=== PATIENT | male | born 1970 | race Two or more races ===

== ENCOUNTER 2016-06-23 20:59 | Emergency (ER) | payer SELFPAY ==
[~2016-06-23 20:59] MED LIST: ALLO100T PO; IBUP-1481 PO
== END 2016-06-23 21:16 | disposition left against medical advice (07) ==
LOC: ER 21:02
DX: Z53.21 Procedure and treatment not carried out due to patient leaving prior to being seen by health care provider (principal)

== ENCOUNTER 2016-07-24 17:24 | Emergency (ER) | payer SELFPAY ==
[~2016-07-24] VITALS: Ht 188 cm; Wt 93.0 kg
[2016-07-24] MEDS ORDERED: predniSONE 20 MG TABLET ONE (18:26)
[2016-07-24] MEDS ORDERED: HYDROCODONE/APAP 5/325MG 1 EACH TABLET ONE (18:26)
[2016-07-24] MEDS ORDERED: HYDROCODONE/APAP 5/325MG 1 EACH TABLET PO ONE (18:30)
[2016-07-24] MEDS ORDERED: predniSONE 20 MG TABLET PO ONE (18:30)
[2016-07-24 18:53] VITALS: BP 147/108
== END 2016-07-24 18:54 | disposition home or self-care (01) ==
LOC: ER 17:26
DX: M10.9 Gout, unspecified (principal); M79.641 Pain in right hand; I10 Essential (primary) hypertension; F17.200 Nicotine dependence, unspecified, uncomplicated
CPT/HCPCS: 73120-TC; A4606; Z7610

== ENCOUNTER 2016-08-28 16:47 | Emergency (ER) | payer SELFPAY ==
[~2016-08-28] VITALS: Ht 188 cm; Wt 95.3 kg
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
--- NOTE | 2016-08-28 17:10 | NUR ---
AT BEDSIDE FOR EVAL
--- NOTE | 2016-08-28 17:28 | NUR ---
XRAY AT BEDSIDE
[2016-08-28] MEDS ORDERED: GELATIN SPONGE,ABSORBABLE 1 SPONGE SPONGE TP ONE (18:25)
--- NOTE | 2016-08-28 18:29 | NUR ---
WOUND CARE DONE. Patient discharged to home in stable condition. Written and verbal after care instructions given. Patient verbalizes understanding of instruction.
--- NOTE | 2016-08-28 18:51 | NUR ---
Patient discharged to home in stable condition. Written and verbal after care instructions given. Patient verbalizes understanding of instruction.
[2016-08-28 18:59] VITALS: BP 130/85
== END 2016-08-28 19:00 | disposition home or self-care (01) ==
LOC: ER 16:49
DX: S61.213A Laceration without foreign body of left middle finger without damage to nail, initial encounter (principal); I10 Essential (primary) hypertension; M10.9 Gout, unspecified; S61.211A Laceration without foreign body of left index finger without damage to nail, initial encounter; F10.20 Alcohol dependence, uncomplicated; F17.210 Nicotine dependence, cigarettes, uncomplicated
CPT/HCPCS: 29130; 73140; 99284; 99406; A4606; A6403; Z7610

== ENCOUNTER 2017-02-26 22:31 | Inpatient (IN) | payer MEDICAID ==
[~2017-02-26] VITALS: Ht 188 cm; Wt 95.3 kg
--- NOTE | 2017-02-26 22:50 | NUR ---
PT BIBSELF. PT STATES "I DONT FEEL GOOD X 1 DAY" PT AOX3 RR EVEN AND UNLABORED. NO SOB NOTED. NAD NOTED. NO NVD AT THIS TIME. PT NOT DIAPHORETIC. PT GOWNED AND PLACED ON MONITOR WAITING FOR MD WARD.
--- NOTE | 2017-02-26 23:00 | NUR ---
DR. SANABRIA AT BEDSIDE
[2017-02-26] MEDS ORDERED: MORPHINE SULFATE INJ 4 MG/ML DISP.SYRIN ONE (23:25)
[2017-02-26] MEDS ORDERED: ONDANSETRON HCL/PF 4 MG/2 ML VIAL ONE (23:25)
[2017-02-26] MEDS ORDERED: MORPHINE SULFATE INJ 2 MG/ML DISP.SYRIN IV ONE (23:30)
[2017-02-26] MEDS ORDERED: ONDANSETRON HCL/PF - ER 4 MG/2 ML VIAL IV ONE (23:30)
--- NOTE | 2017-02-26 23:31 | NUR ---
RADIOLOGY AT BEDSIDE FOR CXR
[2017-02-26 23:42] LABS: BASOPHILS # (AUTO) 0.1 /CMM (0.0-0.2); BASOPHILS % (AUTO) 0.4 % (0.0-2.0); EOSINOPHILS # (AUTO) 0.3 /CMM (0.0-0.7); EOSINOPHILS % (AUTO) 1.8 % (0.0-6.0); HEMATOCRIT 44 % (39-51); HEMOGLOBIN 14.8 g/dL (13.5-17.5); LYMPHOCYTES # (AUTO) 2.4 /CMM (0.8-4.8); LYMPHOCYTES % (AUTO) 12.8 % (20.0-44.0); MEAN CORPUSCULAR HEMOGLOBIN 31 PG (26.0-33.0); MEAN CORPUSCULAR HGB CONC 34 g/dl (31.0-36.0); MEAN CORPUSCULAR VOLUME 93 fL (80-96); MONOCYTES # (AUTO) 0.6 /CMM (0.1-1.30); MONOCYTES % (AUTO) 3.4 % (2.0-12.0); NEUTROPHILS # (AUTO) 15.2 /CMM (1.8-8.9); NEUTROPHILS % (AUTO) 81.6 % (43.0-81.0); PLATELET COUNT (AUTO) 227 /CMM (150-450); RDW COEFFICIENT OF VARIATION 14.4 (11.5-15.0); RED BLOOD CELL COUNT(AUTO) 4.72 MIL/uL (4.5-6.0); WHITE BLOOD COUNT (AUTO) 18.6 K/uL (4.3-11.0)
[2017-02-26 23:53] LABS: CALCIUM, SERUM 9.1 mg/dL (8.5-10.1); CARBON DIOXIDE 21 mmol/L (21-32); CHLORIDE 102 mmol/L (98-107); CREATININE 1.1 mg/dL (0.6-1.3); GLUCOSE 120 mg/dL (74-106); POTASSIUM 3.9 mmol/L (3.5-5.1); SODIUM SERUM 137 mmol/L (136-145); UREA NITROGEN, BLOOD 11 mg/dL (7-18)
[2017-02-26 23:55] LABS: INR 0.96 (0.87-1.13)
[2017-02-27 00:06] LABS: ALANINE AMINOTRANSFERASE 46 U/L (12-78); ALBUMIN 3.6 g/dL (3.4-5.0); ALKALINE PHOSPHATASE 94 U/L (46-116); ASPARTATE AMINOTRANSFERASE 24 U/L (15-37); BILIRUBIN,DIRECT 0.1 mg/dL (0.0-0.2); BILIRUBIN,TOTAL 0.8 mg/dL (0.2-1.0); TOTAL PROTEIN, SERUM 8.3 g/dL (6.4-8.2)
[2017-02-27 00:07] LABS: TROPONIN I < 0.017 ng/mL (0.00-0.056)
--- NOTE | 2017-02-27 00:19 | NUR ---
URINE COLLECTED. CALLED LAB FOR VASCULAR TECH.
[2017-02-27 00:28] LABS: APPEARANCE,URINE CLEAR (CLEAR); BILIRUBIN,URINE NEGATIVE (NEGATIVE); BLOOD, URINE 2+ Ery/uL (NEGATIVE); COLOR,URINE YELLOW (YELLOW); KETONES,URINE NEGATIVE (NEGATIVE); LEUKOCYTE ESTERASE ,URINE NEGATIVE (NEGATIVE); NITRITE, URINE NEGATIVE (NEGATIVE); PH,URINE 5.5 (5.0-8.0); PROTEIN,URINE 3+ mg/dl (NEGATIVE); UGLUCOSE NEGATIVE (NEGATIVE); UROBILINOGEN,URINE 0.2 EU/dL (0.2)
[2017-02-27] MEDS ORDERED: VANCOMYCIN 1 GM VIAL ONE (00:28)
[2017-02-27] MEDS ORDERED: IV NS 0.9% 1,000 ML BAG IV ONE (00:30)
[2017-02-27] MEDS ORDERED: LEVOFLOXACIN 750 MG /D5W 150ML PIGGYBACK IV ONE (00:30)
[2017-02-27] MEDS ORDERED: VANCOMYCIN 1 GM in IV D5W 250 ML IV ONE (00:30)
[2017-02-27 00:32] LABS: BACTERIA,URINE None seen /HPF (None Seen); SQUAMOUS EPITHELIAL CELL,UR Few /HPF (None Seen)
--- NOTE | 2017-02-27 00:48 | NUR ---
PT ASSIGNED TO MA BED 324-2
--- NOTE | 2017-02-27 00:52 | NUR ---
BED 208
--- NOTE | 2017-02-27 01:05 | NUR ---
REPORT GIVEN TO JOHN ZUNIGA FOR MS 208
[2017-02-27] MEDS ORDERED: HYDROCODONE/APAP 5/325MG 1 EACH TABLET PO PRN (01:30)
[2017-02-27] MEDS: CEFTRIAXONE 1 G in IV D5W 50 ML IV SCH (01:30)
[2017-02-27] MEDS ORDERED: ACETAMINOPHEN 325 MG TABLET PO PRN (01:30)
[2017-02-27] MEDS ORDERED: ONDANSETRON HCL/PF 4 MG/2 ML VIAL IVP PRN (01:30)
[2017-02-27] MEDS ORDERED: MAGNESIUM HYDROXIDE 30 ML UDC PO PRN (01:30)
[2017-02-27] MEDS ORDERED: Z GUARD REMEDY 2 OZ OINT TP PRN (01:30)
[2017-02-27] MEDS ORDERED: MAG HYDROX/AL HYDROX/SIMETH 30 ML UDC PO PRN (01:30)
[2017-02-27] MEDS ORDERED: LEVOFLOXACIN 750 MG /D5W 150ML 150 ML IV ONE (01:33)
--- NOTE | 2017-02-27 01:40 | NUR ---
PT TRANSFERRED TO MS BED 208 VIA WC. IVPB LEVAQUIN TRANSFUSING ON ADMISSION.
[2017-02-27] MEDS ORDERED: HYDROCODONE/APAP 5/325MG 1 EACH TABLET ONE (01:57)
[2017-02-27 02:00] VITALS: BP 119/76
--- NOTE | 2017-02-27 02:00 | NUR ---
MS/RN OPENING NOTES PT RECEIVED FROM ER VIA WHEELCHAIR. A/OX4. BREATHING EVEN AND UNLABORED. DENIES SOB BUT NOTES PAIN TO RIGHT ELBOW AND KNEE TO BE 6/10. PT AMBULATED TO BED WITH CANE HOWEVER IS VERY UNSTEADY AND REQUIRES ASSISTANCE. IV TO LAC PATENT AND INTACT. CIGARETTES AND CIVIL RIGHTS INVESTIGATOR PLACED IN NURSES STATION. ORIENTED PT TO ROOM AND CALL LIGHT. BED IN LOW/LOCKED POSITION, SIDE RAILS UPX2. ENCOURAGED PT TO CALL FOR ASSISTANCE UPON AMBULATION. PT VERBALIZED UNDERSTANDING. WILL CONTINUE TO MONITOR.
[2017-02-27] MEDS: IV NS 0.9% 1,000 ML IV PRN ×2 (02:02→16:24)
[2017-02-27] MEDS ORDERED: CEFTRIAXONE 1 G VIAL ONE (03:51)
--- NOTE | 2017-02-27 07:00 | NUR ---
MS/RN CLOSING NOTES PT ASLEEP, EASILY AROUSABLE TO NAME. ON ROOM AIR, DENIES SOB OR PAIN AT THIS TIME. BREATHING EVEN AND UNLABORED. IV TO LAC PATENT AND INTACT RUNNING IVF ORDERED. MADE PT COMFORTABLE DURING SHIFT. ALL NEEDS MET AND ATTENDED. ENCOURAGED AND REMINDED PT TO USE CALL LIGHT FOR ASSISTANCE. BED ALARM ON FOR SAFETY. CIGARETTES AND LIGHTERS AT NURSING STATION. BED IN LOW/LOCKED POSITION, CALL LIGHT IN REACH. SIDE RAILS UPX2. ENDORSED TO AM SHIFT FELIPE.
--- NOTE | 2017-02-27 07:30 | NUR ---
MS/RN Patient received Patient received from cage shift manager. No needs at this time, will continue to monitor and ensure safety.
[2017-02-27 08:00] VITALS: BP 129/84
[2017-02-27] MEDS ORDERED: FEE PK DOSING 1 MIN EA MC ONE (08:32)
[2017-02-27] MEDS: ALLOPURINOL 100 MG TABLET PO SCH ×2 (08:57→16:25)
[2017-02-27] MEDS: PANTOPRAZOLE 40 MG TABLET.DR PO SCH (08:57)
--- NOTE | 2017-02-27 09:00 | NUR ---
MS/RN Medications Morning medications administered as ordered, no problems swallowing.
[2017-02-27] MEDS: HYDROCODONE/APAP 10/325MG 1 EA TABLET PO PRN ×3 (09:05→21:13)
[2017-02-27] MEDS: VANCOMYCIN 1 GM in IV D5W 250 ML IV SCH ×2 (09:11→16:25)
--- NOTE | 2017-02-27 09:50 | NUR ---
MS/RN Vanco Vancomycin hung as ordered, no signs of reaction. Vanco trough due tomorrow at 8(02/28/17)
--- NOTE | 2017-02-27 10:57 | NUR ---
WOUND CARE CONSULT PATIENT SEEN AND SKIN INTEGRITY ASSESSMENT DONE. RECOMMEND ORTHO CONSULT/EVALUATION FOR THE RIGHT ELBOW SWELLING. PATIENT WITH JAMES AT 19 AND PATIENT IS INDEPENDENT WITH BED MOBILITY.
--- NOTE | 2017-02-27 12:00 | NUR ---
MS/RN S/B Dr Szymanski Seen by Dr Szymanski - awaiting ortho for further orders / plan of care.
--- NOTE | 2017-02-27 12:13 | NUR ---
MS/movie writer consult Ortho exchange called and made aware of new consult.
--- NOTE | 2017-02-27 13:51 | NUR ---
MS/RN Rounds Patient comfortable at this time, states that pain is controlled. Awaiting ortho eval.
[2017-02-27 16:00] VITALS: BP 124/83
[2017-02-27] MEDS ORDERED: IBUPROFEN 600 MG TABLET PO PRN (16:30)
[2017-02-27] MEDS ORDERED: COLCHICINE 0.6 MG TABLET PO PRN (16:30)
--- NOTE | 2017-02-27 18:21 | NUR ---
MS/RN End note Seen by ortho - no surgical intervention required at this time, continue with current IVAB schedule. Last pain medication administered at 1640 (norco 10/325mg). Will endorse to horseshoer.
--- NOTE | 2017-02-27 19:30 | NUR ---
MS RN OPENING NOTES: PATIENT IN BED, AOX4, ON ROOM AIR, BREATHING EVEN AND UNLABORED. APPEARS CALM AND IN NO DISTRESS, BUT STATES THAT HE HAS 5/10 PAIN OVER HIS R ELBOW AND R KNEE, AND THAT THE EARLIER DOSE OF NORCO DID NOT RELIEVE THE PAIN SIGNIFICANTLY. PIV OVER LAC G18 INTACT AND PATENT TO FLUSH. PATIENT IS OFF IV FLUIDS AT THIS TIME, SAYING HE WANTS TO HAVE IT RECONNECTED LATER BEFORE HE GOES TO SLEEP. PROVIDED FOR COMFORT AND SAFETY. BED IN LOWEST AND LOCKED POSITION, SIDERAILS UP X2, BROTHER AT BEDSIDE. WILL CONT TO MONITOR.
[2017-02-27 20:00] VITALS: BP 123/72
--- NOTE | 2017-02-27 20:01 | NUR ---
RN NOTES: CALLED DR FÁTIMA HART PATIENT'S COMPLAINT THAT HIS R ELBOW AND R KNEE PAIN DOES NOT GET SIGNIFICANTLY RELIEVED BY NORCO 10-325 MG Q 4 PRN, AND THAT HE IS ASKING FOR A DIFFERENT PAIN MEDICATION. NO NEW ORDERS GIVEN BY MD, OTHER THAN TO CONTINUE CURRENT PAIN MEDS.
--- NOTE | 2017-02-27 21:17 | NUR ---
RN NOTES: PT COMPLAINED OF 8/10 PAIN OVER HIS R ELBOW AND R KNEE. ADMINISTERED NORCO 10-325 MG PO. PROVIDED FOR COMFORT. WILL CONT TO MONITOR.
[2017-02-27] MEDS: ZOLPIDEM TARTRATE 5 MG TABLET PO PRN (22:14)
[2017-02-28] MEDS: VANCOMYCIN 1 GM in IV D5W 250 ML IV SCH ×3 (00:15→17:55)
[2017-02-28] MEDS: CEFTRIAXONE 1 G in IV D5W 50 ML IV SCH (01:50)
[2017-02-28 02:19] VITALS: BP 116/83
--- NOTE | 2017-02-28 02:22 | NUR ---
RN NOTES: NOTED THAT R ELBOW WOUND HAS SMALL AMOUNT OF SEROSANGUINEOUS DRAINAGE. CLEANSED WITH NS, PATTED DRY, APPLIED DRY DRESSING AND SECURED WITH PAPER TAPE. CONT TO MONITOR FOR CHANGES IN APPEARANCE OF WOUND AND OF THE DRAINAGE.
[2017-02-28 06:22] LABS: BASOPHILS # (AUTO) 0.1 /CMM (0.0-0.2); BASOPHILS % (AUTO) 0.3 % (0.0-2.0); EOSINOPHILS # (AUTO) 0.2 /CMM (0.0-0.7); EOSINOPHILS % (AUTO) 1.3 % (0.0-6.0); HEMATOCRIT 41 % (39-51); HEMOGLOBIN 13.6 g/dL (13.5-17.5); LYMPHOCYTES # (AUTO) 2.1 /CMM (0.8-4.8); LYMPHOCYTES % (AUTO) 10.8 % (20.0-44.0); MEAN CORPUSCULAR HEMOGLOBIN 32 PG (26.0-33.0); MEAN CORPUSCULAR HGB CONC 33 g/dl (31.0-36.0); MEAN CORPUSCULAR VOLUME 95 fL (80-96); MONOCYTES # (AUTO) 0.8 /CMM (0.1-1.30); MONOCYTES % (AUTO) 4.3 % (2.0-12.0); NEUTROPHILS # (AUTO) 16.3 /CMM (1.8-8.9); NEUTROPHILS % (AUTO) 83.3 % (43.0-81.0); PLATELET COUNT (AUTO) 206 /CMM (150-450); RDW COEFFICIENT OF VARIATION 14.2 (11.5-15.0); RED BLOOD CELL COUNT(AUTO) 4.31 MIL/uL (4.5-6.0); WHITE BLOOD COUNT (AUTO) 19.5 K/uL (4.3-11.0)
[2017-02-28 06:47] LABS: CALCIUM, SERUM 8.6 mg/dL (8.5-10.1); CREATININE 1.3 mg/dL (0.6-1.3); PHOSPHORUS 3.6 mg/dL (2.5-4.9); POTASSIUM 4.2 mmol/L (3.5-5.1); THYROID STIMULATING HORMONE 0.652 uIU/mL (0.358-3.74); URIC ACID 8.7 mg/dL (2.6-7.2)
--- NOTE | 2017-02-28 06:50 | NUR ---
RN NOTES: RECEIVED CALL FROM NILDA FROM LAB: CRITICAL VALUE OF MAGNESIUM AT 1.0. PAGED DR FÁTIMA PALENCIA, AWAITING CALL BACK.
--- NOTE | 2017-02-28 07:34 | NUR ---
MS RN CLOSING NOTES: PATIENT IN BED, AOX4, ON ROOM AIR, BREATHING EVEN AND UNLABORED. APPEARS CALM AND IN NO DISTRESS. PIV OVER LAC G 18 INTACT AND INFUSING CONTINUOUSLY WITH NS RUNNING AT 75 ML/HR. NO ACUTE CHANGE IN CONDITION NOTED THROUGH SHIFT. PROVIDED FOR COMFORT AND SAFETY. BED IN LOWEST AND LOCKED POSITION, SIDERAILS UPX2. STILL AWAITING CALL BACK FROM [facility] REGARDING MAGNESIUM 1.0. ENDORSED TO AM RN FOR FELIPE.
--- NOTE | 2017-02-28 07:35 | NUR ---
RN Initial Notes: Patient resting in bed. Alert oriented x4. Non-labored breathing on room air noted. Patient denies pain at the moment. Bed in lowest locked position. Call light within reach. Will continue to monitor
--- NOTE | 2017-02-28 07:47 | NUR ---
RN NOTES: TRIED TO PAGE [facility] MD FRENCH BINDING FOLDER AGAIN FOR M.0, STILL AWAITING FOR CALL BACK.
[2017-02-28] MEDS: PANTOPRAZOLE 40 MG TABLET.DR PO SCH (07:58)
[2017-02-28 08:00] VITALS: BP 133/87
--- NOTE | 2017-02-28 08:06 | NUR ---
RN Notes: Spoke to Dr. Szymanski. He ordered 2 g magnesium IV x1.
[2017-02-28] MEDS: Magnesium 1GM/D5W 100ML PREMIX 100 ML IV SCH ×2 (08:45→10:27)
[2017-02-28] MEDS: ALLOPURINOL 100 MG TABLET PO SCH ×2 (08:59→17:33)
--- NOTE | 2017-02-28 09:19 | NUR ---
RN Notes: Vital signs reassessed at rest. HR 106/min and temperature 98.2F
--- NOTE | 2017-02-28 09:20 | NUR ---
RN Notes: Dr. Szymanski ordered to have serum magnesium checked again after the administration of his previous order
--- NOTE | 2017-02-28 11:59 | NUR ---
RN Notes: Spoke to Ivory at 0945 regarding Vancomycin delivery. Spoke to Ivory at 1030 as well and confirmed that Vancomycin was being delivered. Vancomycin delivered at 1130. However, Patient refused to have it infused and desired to go on a smoke break. Vancomycin administered 8192
[2017-02-28] MEDS: IV NS 0.9% 1,000 ML IV PRN (15:56)
[2017-02-28 16:00] VITALS: BP 123/68
[2017-02-28] MEDS: LACTOBACILLUS RHAMNOSUS GG 1 EACH CAP.SPRINK PO SCH (17:32)
--- NOTE | 2017-02-28 17:45 | NUR ---
RN Notes: Spoke to Pharmacy staff member to confirm administration of Vancomycin, scheduled at 1700
--- NOTE | 2017-02-28 18:45 | NUR ---
RN Closing Notes: Patient resting in bed. Alert oriented x4. Non-labored breathing on room air noted. Patient denies pain at the moment. Bed in lowest locked position. Call light within reach. Patient afebrile. During shift, patient kept clean and dry. Needs met promptly. Wound dressing done. Will endorse to next shift
--- NOTE | 2017-02-28 19:30 | NUR ---
MS RN CLOSING NOTES: PATIENT SITTING ON BED, AOX4, ON ROOM AIR, BREATHING EVEN AND UNLABORED, APPEARS CALM AND IN NO DISTRESS, EATING DINNER WITH . PATIENT HAS JUST COME BACK FROM A SMOKE BREAK. PIV OVER LAC G18 INTACT AND PATENT TO FLUSH, PATIENT REQUESTED FOR IV FLUID TO BE STOPPED FOR A WHILE AT THIS TIME, SAYING HE WANTS TO WALK IN THE HALLWAY FOR NOW. EDUCATED PATIENT AGAIN RE RISKS OF SMOKING, PATIENT VERBALIZED UNDERSTANDING OF RISKS OF SMOKING AND BENEFITS OF QUITTING. PROVIDED FOR COMFORT AND SAFETY. R ELBOW WITH CLEAN AND INTACT DRESSING. WILL CONT TO MONITOR.
[2017-02-28] MEDS: HYDROCODONE/APAP 10/325MG 1 EA TABLET PO PRN (19:46)
--- NOTE | 2017-02-28 19:50 | NUR ---
RN NOTES: PT COMPLAINS OF 810 PAIN OVER R ELBOW AND R KNEE. ADMINISTERED NORCO 10-325 MG PO. WILL CONT TO MONITOR.
[2017-02-28 20:00] VITALS: BP 110/73
--- NOTE | 2017-02-28 23:08 | NUR ---
RN NOTES: PATIENT COMPLAINED OF PAIN/ TENDERNESS OVER PIV OVER LAC. IV STILL HAS GOOD BLOOD RETURN, BUT SLIGHTLY REDDENED. D'LOPEZ LINE, AND REINSERTED NEW IV LINE AT LFA G20.
[2017-02-28] MEDS: ZOLPIDEM TARTRATE 5 MG TABLET PO PRN (23:23)
[2017-03-01] MEDS: VANCOMYCIN 1 GM in IV D5W 250 ML IV SCH ×3 (01:26→17:56)
[2017-03-01] MEDS: CEFTRIAXONE 1 G in IV D5W 50 ML IV SCH (02:26)
[2017-03-01 05:00] VITALS: BP 115/88
[2017-03-01 06:35] LABS: CALCIUM, SERUM 8.9 mg/dL (8.5-10.1); CREATININE 1.5 mg/dL (0.6-1.3)
--- NOTE | 2017-03-01 06:52 | NUR ---
MS RN CLOSING NOTES: PATIENT IN BED, AOX4, ON ROOM AIR, BREATHING EVEN AND UNLABORED. APPEARS CALM AND IN NO DISTRESS. PIV OVER LFA G20 INTACT AND INFUSING WELL WITH NS RUNNING AT 75 ML/HR. WOUND DRESSING OVER R ELBOW CHANGED. PROVIDED FOR COMFORT AND SAFETY. BED IN LOWEST AND LOCKED POSITION, SIDERAILS UP X2. NO ACUTE CHANGE IN CONDITION NOTED THROUGH SHIFT. WILL ENDORSE TO AM RN FOR FELIPE.
--- NOTE | 2017-03-01 07:20 | NUR ---
RN Initial Notes: Received patient resting in bed. Nonlabored breathing noted on room air. Patient alert oriented x4. Patient denies pain at the moment. IV site on left forearm is patent and intact.Bed in lowest locked position. Call light within reach. Will continue to monitor.
[2017-03-01 07:28] LABS: BASOPHILS % (AUTO) 0.2 % (0.0-2.0); EOSINOPHILS # (AUTO) 0.5 /CMM (0.0-0.7); EOSINOPHILS % (AUTO) 3.7 % (0.0-6.0); HEMATOCRIT 39 % (39-51); HEMOGLOBIN 12.9 g/dL (13.5-17.5); LYMPHOCYTES # (AUTO) 2.1 /CMM (0.8-4.8); LYMPHOCYTES % (AUTO) 15.8 % (20.0-44.0); MEAN CORPUSCULAR HEMOGLOBIN 31 PG (26.0-33.0); MEAN CORPUSCULAR HGB CONC 33 g/dl (31.0-36.0); MEAN CORPUSCULAR VOLUME 94 fL (80-96); MONOCYTES # (AUTO) 0.7 /CMM (0.1-1.30); MONOCYTES % (AUTO) 5.6 % (2.0-12.0); NEUTROPHILS # (AUTO) 10.1 /CMM (1.8-8.9); NEUTROPHILS % (AUTO) 74.7 % (43.0-81.0); PLATELET COUNT (AUTO) 219 /CMM (150-450); RDW COEFFICIENT OF VARIATION 14.6 (11.5-15.0); RED BLOOD CELL COUNT(AUTO) 4.12 MIL/uL (4.5-6.0); WHITE BLOOD COUNT (AUTO) 13.5 K/uL (4.3-11.0)
[2017-03-01 07:42] LABS: ALBUMIN 2.9 g/dL (3.4-5.0); BILIRUBIN,DIRECT 0.2 mg/dL (0.0-0.2); BILIRUBIN,TOTAL 0.7 mg/dL (0.2-1.0); TOTAL PROTEIN, SERUM 7.7 g/dL (6.4-8.2)
[2017-03-01 08:00] VITALS: BP 105/74
[2017-03-01] MEDS: LACTOBACILLUS RHAMNOSUS GG 1 EACH CAP.SPRINK PO SCH ×2 (08:44→16:40)
[2017-03-01] MEDS: PANTOPRAZOLE 40 MG TABLET.DR PO SCH (08:44)
[2017-03-01] MEDS: HYDROCODONE/APAP 10/325MG 1 EA TABLET PO PRN ×2 (08:57→20:01)
[2017-03-01] MEDS: ALLOPURINOL 100 MG TABLET PO SCH ×2 (09:48→16:40)
[2017-03-01 16:00] VITALS: BP 118/75
--- NOTE | 2017-03-01 19:15 | NUR ---
RN Closing Notes: Patient resting in bed. Nonlabored breathing noted on room air. Patient alert oriented x4. IV site on left forearm is patent and intact.Bed in lowest locked position. Call light within reach. During shift, patient kept clean and dry. Wound dressing changed. Patient endorsed to next shift
--- NOTE | 2017-03-01 19:30 | NUR ---
MS RN OPENING NOTES: PATIENT IN BED, AOX4, ON ROOM AIR, BREATHING EVEN AND UNLABORED. PIV OVER LFA G20 INTACT AND INFUSING WELL WITH NS RUNNING AT 75 ML/HR. R ELBOW STILL WITH NOTICEABLE REDNESS AND SWELLING, WITH CLEAN AND INTACT DRESSING . PATIENT STATES THAT HE HAS PAIN OVER THIS SITE, SCALED AT 7-8 /10. PROVIDED FOR COMFORT AND SAFETY. BED IN LOWEST AND LOCKED POSITION, SIDERAILS UPX2. AT BEDSIDE. WILL CONT TO MONITOR.
[2017-03-01 20:00] VITALS: BP 132/78
--- NOTE | 2017-03-01 20:01 | NUR ---
RN NOTES: PATIENT COMPLAINED OF 8/10 PAIN OVER R ELBOW. ADMINISTERED NORCO 10-325 MG PO. WILL CONT TO MONITOR.
[2017-03-01] MEDS: ZOLPIDEM TARTRATE 5 MG TABLET PO PRN (22:06)
[2017-03-02] MEDS: VANCOMYCIN 1 GM in IV D5W 250 ML IV SCH ×2 (01:00→16:24)
[2017-03-02] MEDS: CEFTRIAXONE 1 G in IV D5W 50 ML IV SCH (01:28)
[2017-03-02] MEDS: IV NS 0.9% 1,000 ML IV PRN ×2 (01:28→22:23)
--- NOTE | 2017-03-02 01:30 | NUR ---
RN NOTES: VANCO TROUGH: 22. HELD 0130 AM DOSE OF VANCOMYCIN 1 GM.
[2017-03-02 06:21] LABS: BASOPHILS % (AUTO) 0.1 % (0.0-2.0); EOSINOPHILS # (AUTO) 0.5 /CMM (0.0-0.7); EOSINOPHILS % (AUTO) 4.3 % (0.0-6.0); HEMATOCRIT 37 % (39-51); HEMOGLOBIN 12.5 g/dL (13.5-17.5); LYMPHOCYTES # (AUTO) 1.8 /CMM (0.8-4.8); LYMPHOCYTES % (AUTO) 16.1 % (20.0-44.0); MEAN CORPUSCULAR HEMOGLOBIN 32 PG (26.0-33.0); MEAN CORPUSCULAR HGB CONC 34 g/dl (31.0-36.0); MEAN CORPUSCULAR VOLUME 93 fL (80-96); MONOCYTES # (AUTO) 0.9 /CMM (0.1-1.30); MONOCYTES % (AUTO) 7.8 % (2.0-12.0); NEUTROPHILS % (AUTO) 71.7 % (43.0-81.0); PLATELET COUNT (AUTO) 245 /CMM (150-450); RED BLOOD CELL COUNT(AUTO) 3.93 MIL/uL (4.5-6.0); WHITE BLOOD COUNT (AUTO) 11.1 K/uL (4.3-11.0)
[2017-03-02 06:32] LABS: CALCIUM, SERUM 9.2 mg/dL (8.5-10.1); CREATININE 1.4 mg/dL (0.6-1.3); POTASSIUM 4.2 mmol/L (3.5-5.1)
--- NOTE | 2017-03-02 06:34 | NUR ---
RN NOTES: PATIENT'S PIV OVER LFA STARTING TO SWELL. D'LOPEZ LINE AND REINSERTED NEW IV LINE ON LAC G22. PATIENT COMPLAINED OF MILD PAIN OVER R ELBOW. ADMINISTERED IBUPROFEN 600 MG PO. WILL CONT TO MONITOR.
--- NOTE | 2017-03-02 06:53 | NUR ---
MS RN CLOSING NOTES: PATIENT IN BED, AOX4, ON ROOM AIR, BREATHING EVEN AND UNLABORED. APPEARS CALM AND IN NO DISTRESS. PIV OVER LAC G22 INTACT AND PATENT TO FLUSH. DUE MEDS GIVEN. WOUND DRESSING OVER R ELBOW CHANGED. NO ACUTE CHANGE IN CONDITION NOTED THROUGH SHIFT. WILL ENDORSE TO AM RN FOR FELIPE .
--- NOTE | 2017-03-02 07:30 | NUR ---
ms rn initial notes' Received patient in bed, asleep, head of bed elevated, no SOB or distress noted, on room air and tolerated well. Alert and oriented x 4, verbally responsive and able to make needs known. IV intact and patent with IVF infusing well. Kept patient clean and comfortable in bed, call light with in patient reach, will continue to monitor accordingly.
[2017-03-02] MEDS: PANTOPRAZOLE 40 MG TABLET.DR PO SCH (07:50)
[2017-03-02 08:00] VITALS: BP 124/74
[2017-03-02] MEDS: LACTOBACILLUS RHAMNOSUS GG 1 EACH CAP.SPRINK PO SCH ×2 (09:01→16:24)
[2017-03-02] MEDS: ALLOPURINOL 100 MG TABLET PO SCH ×2 (09:01→16:24)
--- NOTE | 2017-03-02 15:24 | NUR ---
ms rn notes Dr. Szymanski ordered for midline insertion and RN workers' compensation claims supervisor made aware for IV ATB use. All orders carried out and noted. Will continue to monitor accordingly.
[2017-03-02 16:00] VITALS: BP 131/98
[2017-03-02] MEDS: HYDROCODONE/APAP 10/325MG 1 EA TABLET PO PRN ×2 (16:27→23:31)
--- NOTE | 2017-03-02 19:30 | NUR ---
ms rn closing notes All needs provided, attended, and anticipated. Endorsed to next shift RN to continue care.
[2017-03-02 20:06] VITALS: BP 125/94
--- NOTE | 2017-03-02 20:10 | NUR ---
MS RN NOTED: PATIENT RESTING IN BED, NO ACUTE DISTRESS NOTED. BREATHING EVEN AND UNLABORED, NO SOB NOTED. MIDLINE TO KYLER IN PLACE. IV TO LAC REMOVED. DRESSING TO RIGHT ELBOW CHANGED. SITE CLEANSED WITH NS, PAT DRY, COVERED WITH GAUZE, WRAPPED WITH KERLIX AND SECURED WITH TAPE. BED LOCKED AND IN LOWEST POSITION, CALL LIGHT IN REACH, WILL CONTINUE TO MONITOR.
[2017-03-02] MEDS: ZOLPIDEM TARTRATE 5 MG TABLET PO PRN (22:23)
--- NOTE | 2017-03-02 22:30 | NUR ---
MS RN NOTE: PATIENT REQUEST FOR SLEEPING MEDICATIONS, AMBIEN 5MG 1 TAB ORAL GIVEN PER MD ORDER. WILL CONTINUE TO MONITOR.
--- NOTE | 2017-03-02 23:45 | NUR ---
MS RN NOTE: PATIENT COMPLAINS OF PAIN TO RIGHT ELBOW 01/08, NORCO 10/325MG 1 TAB ORAL GIVEN PER MD ORDER. WILL CONTINUE TO MONITOR.
[2017-03-03] MEDS: CEFTRIAXONE 1 G in IV D5W 50 ML IV SCH (01:13)
[2017-03-03] MEDS: VANCOMYCIN 1 GM in IV D5W 250 ML IV SCH ×2 (05:48→15:03)
--- NOTE | 2017-03-03 06:18 | NUR ---
MS RN NOTED: PATIENT RESTING IN BED, NO ACUTE DISTRESS NOTED. BREATHING EVEN AND UNLABORED, NO SOB NOTED. MIDLINE TO KYLER IN PLACE, INFUSING NS AT 75ML/HR. DRESSING TO RIGHT ELBOW IN PLACE. BED LOCKED AND IN LOWEST POSITION, CALL LIGHT IN REACH, WILL ENDORSE TO DAY NURSE TO CONTINUE WITH PLAN OF CARE.
[2017-03-03 06:41] LABS: CALCIUM, SERUM 9.3 mg/dL (8.5-10.1); CREATININE 1.4 mg/dL (0.6-1.3); POTASSIUM 4.2 mmol/L (3.5-5.1)
--- NOTE | 2017-03-03 07:16 | NUR ---
ms rn initial notes Received patient in bed, asleep, head of bed elevated, no SOB or distress noted, on room air and tolerated well. Midline in place and patent. No facial grimace noted. Kept patient clean and comfortable in bed, call light with in patient reach, will continue to monitor accordingly. Alert and oriented x 4, verbally responsive and able to make needs known.
[2017-03-03] MEDS: PANTOPRAZOLE 40 MG TABLET.DR PO SCH (07:38)
[2017-03-03 08:00] VITALS: BP_SYST 114; BP_SYST 116; BP_DIAS 72; BP_DIAS 88
[2017-03-03] MEDS: LACTOBACILLUS RHAMNOSUS GG 1 EACH CAP.SPRINK PO SCH (08:54)
[2017-03-03] MEDS: ALLOPURINOL 100 MG TABLET PO SCH (08:54)
[2017-03-03] MEDS ORDERED: CEFT1VIA15 IV (10:19)
[2017-03-03] MEDS ORDERED: RXVAN XX (10:19)
[2017-03-03] MEDS ORDERED: Colchicine PO (10:19)
[2017-03-03] MEDS ORDERED: VANC1PLA9 IV (10:19)
[2017-03-03 16:00] VITALS: BP_SYST 124; BP_SYST 127; BP_DIAS 64; BP_DIAS 85
--- NOTE | 2017-03-03 16:30 | NUR ---
ms interventional radiology rn notes Discharge instructions given to patient and able to understand instructions. Health teaching and education rendered. IV in placed midline. Wound dressing done prior discharge. Flu vaccine offered and will receive elsewhere. Pneumonia vaccine not given due to patient is <65 years old. No SOB or distress noted. Alert and oriented x 4, verbally responsive and able to make needs known. Pictures taken and filed in the chart. Vital signs checked and recorded. MD and charge nurse made aware.
== END 2017-03-03 16:30 | disposition home health service (06) | DRG 344 ==
LOC: ER 22:34 → MEDSG2 02-27 01:06
PROC: 05H633Z Insertion of Infusion Device into Left Subclavian Vein, Percutaneous Approach (ICD-10-PCS; principal; 2017-03-02)
PROC: B547ZZA Ultrasonography of Left Subclavian Vein, Guidance (ICD-10-PCS; principal; 2017-03-02)
DX: M00.9 Pyogenic arthritis, unspecified (principal); E83.42 Hypomagnesemia; I10 Essential (primary) hypertension; M10.9 Gout, unspecified; E78.5 Hyperlipidemia, unspecified; F17.200 Nicotine dependence, unspecified, uncomplicated; M71.121 Other infective bursitis, right elbow; L03.113 Cellulitis of right upper limb
CPT/HCPCS: 36415; 36569; 71010-TC; 73080-TC; 80048-TC; 80061-TC; 80076-TC; 80202-TC; 81000-TC; 83605-TC; 83735-TC; 84100-TC; 84443-TC; 84484-TC; 84550-TC; 85025-TC; 85652-TC; 85730-TC; 87040-TC; 87081-TC; 87086-TC; A4606; A6402; J0696; J1956; J2270; J2405; J3370; J3475; J7030; J7060; Z7610

== ENCOUNTER 2017-10-16 12:07 | Emergency (ER) | payer MEDICAID, OTHER ==
[~2017-10-16] VITALS: Ht 188 cm; Wt 113.4 kg
[~2017-10-16 12:07] MED LIST changes: +CEFT1VIA15 IV; +Colchicine PO; -IBUP-1481 PO; +IBUP-1953 PO; +RXVAN XX; +VANC1PLA9 IV
--- NOTE | 2017-10-16 12:10 | NUR ---
AAOX3, c/o R hand pain and swelling x 6 days, takes meds for gout. RR is even and unlabored with NAD noted. Skin is warm and dry. Awaiting MD for eval.
[2017-10-16] MEDS ORDERED: CLINDAMYCIN 900 MG in IV D5W 100 ML IV ONE (13:00)
[2017-10-16 13:13] LABS: BASOPHILS % (AUTO) 0.3 % (0.0-2.0); EOSINOPHILS % (AUTO) 3.6 % (0.0-6.0); HEMATOCRIT 40 % (39-51); HEMOGLOBIN 13.8 g/dL (13.5-17.5); LYMPHOCYTES # (AUTO) 2.1 /CMM (0.8-4.8); LYMPHOCYTES % (AUTO) 22.3 % (20.0-44.0); MEAN CORPUSCULAR HGB CONC 35 g/dl (31.0-36.0); MEAN CORPUSCULAR VOLUME 95 fL (80-96); MONOCYTES # (AUTO) 0.5 /CMM (0.1-1.30); MONOCYTES % (AUTO) 5.1 % (2.0-12.0); NEUTROPHILS # (AUTO) 6.4 /CMM (1.8-8.9); NEUTROPHILS % (AUTO) 68.7 % (43.0-81.0); PLATELET COUNT (AUTO) 286 /CMM (150-450); RDW COEFFICIENT OF VARIATION 12.7 (11.5-15.0); RED BLOOD CELL COUNT(AUTO) 4.18 MIL/uL (4.5-6.0); WHITE BLOOD COUNT (AUTO) 9.3 K/uL (4.3-11.0)
--- NOTE | 2017-10-16 13:20 | NUR ---
CALLED NURSING SUP. FOR MS BED
[2017-10-16] MEDS ORDERED: VANCOMYCIN 1 GM in IV D5W 250 ML IV ONE (13:30)
[2017-10-16] MEDS ORDERED: PIPERACILLIN /TAZOBACTAM 3.375 G in IV D5W 50 ML IV ONE (13:30)
[2017-10-16] MEDS ORDERED: COLC0.6C3 PO (13:32)
[2017-10-16 13:33] LABS: CREATININE 1.3 mg/dL (0.6-1.3); POTASSIUM 4.3 mmol/L (3.5-5.1)
--- NOTE | 2017-10-16 13:38 | NUR ---
CALLED , LEFT MESSAGE ON VOICEMAIL
[2017-10-16 13:39] LABS: ALBUMIN 3.2 g/dL (3.4-5.0); BILIRUBIN,DIRECT 0.1 mg/dL (0.0-0.2); BILIRUBIN,TOTAL 0.4 mg/dL (0.2-1.0); TOTAL PROTEIN, SERUM 7.8 g/dL (6.4-8.2)
--- NOTE | 2017-10-16 13:56 | NUR ---
Dez dean in ED - 10/16/17 at 1836 by FELICIANO MS [id number] FOR HAND ABSCESS, CELLULITIS, JOSE PAYNE
--- NOTE | 2017-10-16 14:16 | NUR ---
CALLED [facility], SPOKE WITH FOREIGN, PRESENTED PT, FAXED FACESHEET TO HIM AT [phone]
--- NOTE | 2017-10-16 15:00 | NUR ---
CALLED 'S OFFICE, HE IS IN SURGERY RIGHT NOW
--- NOTE | 2017-10-16 15:17 | NUR ---
Patient is playing with his phone at BS. VSS.
[2017-10-16] MEDS ORDERED: MORPHINE SULFATE INJ 4 MG/ML DISP.SYRIN ONE ×2 (15:21→17:12)
[2017-10-16] MEDS ORDERED: ONDANSETRON HCL/PF 4 MG/2 ML VIAL ONE (15:21)
--- NOTE | 2017-10-16 15:24 | NUR ---
Patient insists to go out smoking, MICHELLE Zarate made aware.
[2017-10-16] MEDS ORDERED: ONDANSETRON HCL/PF - ER 4 MG/2 ML VIAL IV ONE (15:30)
[2017-10-16] MEDS ORDERED: IV NS 0.9% 500 ML BAG IV ONE (15:30)
[2017-10-16] MEDS ORDERED: MORPHINE SULFATE INJ 4 MG/ML DISP.SYRIN IV ONE (15:30)
--- NOTE | 2017-10-16 15:30 | NUR ---
RECEIV[place] FROM [place]EIGN [place] [facility] [place] [facility] ER BY DR.E GARCIA, NUMBER FOR NURSE TO GIVE REPORT IS [phone].
--- NOTE | 2017-10-16 15:36 | NUR ---
REQUESTED [facility] FOR TRANSPORT TO [facility], ETA 1 HOUR, TRIP # [id number]
--- NOTE | 2017-10-16 16:12 | NUR ---
Report given to JOHN Brown for continuity of care [facility].
--- NOTE | 2017-10-16 16:37 | NUR ---
Dez dean in [facility] - 10/16/17 at 1933 by FELICIANO KORI RIOS 1914
--- NOTE | 2017-10-16 17:13 | NUR ---
VERBAL ORDER SHANNA MARTINEZ MORPHINE 4 MG IV X1
--- NOTE | 2017-10-16 17:35 | NUR ---
Dez dean in ED - 10/16/17 at 1808 by DEBI REPORT GIVEN TO JEFF EMT.
--- NOTE | 2017-10-16 17:58 | NUR ---
CALLED [facility] FOR TRANSPORTATION 5-10 MIN
[2017-10-16] MEDS ORDERED: MORPHINE SULFATE INJ 2 MG/ML DISP.SYRIN IV ONE (18:00)
--- NOTE | 2017-10-16 18:37 | NUR ---
[facility] ETA 191
--- NOTE | 2017-10-16 18:38 | NUR ---
Report given to JOHN Burrows for FELIPE.
--- NOTE | 2017-10-16 19:15 | NUR ---
AWAITING TRANSFER PICKUP
--- NOTE | 2017-10-16 19:32 | NUR ---
[facility] ETA 1 HOUR
--- NOTE | 2017-10-16 19:49 | NUR ---
[facility] ETA 18 MIN
[2017-10-16 20:18] VITALS: BP 133/80
--- NOTE | 2017-10-16 20:26 | NUR ---
JEFF ARRIVED. REPORT GIVEN TO OUTSIDE MACHINIST APPRENTICE. PT TRANSFERED OUT TO [facility] ER. VSS
== END 2017-10-16 20:28 ==
LOC: ER 12:10
DX: L02.511 Cutaneous abscess of right hand (principal); M65.9 Synovitis and tenosynovitis, unspecified; L08.9 Local infection of the skin and subcutaneous tissue, unspecified; I10 Essential (primary) hypertension; F10.10 Alcohol abuse, uncomplicated; F17.200 Nicotine dependence, unspecified, uncomplicated; M10.9 Gout, unspecified; Z72.0 Tobacco use
CPT/HCPCS: 36415; 71045-TC; 73130-TC; 80048-TC; 80076-TC; 83605-TC; 85025-TC; 87040-TC; 87081-TC; A4606; J2270; J2405; J2543; J3370; J3490; J7040; J7060; Z7610

== ENCOUNTER 2018-02-22 00:38 | Emergency (ER) | payer OTHER ==
[~2018-02-22] VITALS: Ht 188 cm; Wt 97.5 kg
[~2018-02-22 00:38] MED LIST changes: -CEFT1VIA15 IV; +COLC0.6C3 PO; -Colchicine PO; -RXVAN XX; -VANC1PLA9 IV
[2018-02-22] MEDS ORDERED: ACETAMINOPHEN ES 500 MG TABLET PO ONE (01:00)
[2018-02-22] MEDS ORDERED: HYDROCODONE/APAP 10/325MG 1 EA TABLET PO ONE (01:00)
[2018-02-22] MEDS ORDERED: NITROGLYCERIN PACKET 1 GM PACKET TD ONE (01:00)
[2018-02-22] MEDS ORDERED: ONDANSETRON HCL/PF - ER 4 MG/2 ML VIAL IV ONE (01:00)
[2018-02-22] MEDS ORDERED: INDOMETHACIN 25 MG CAPSULE PO ONE (01:00)
[2018-02-22] MEDS ORDERED: ASPIRIN 81 MG TAB.CHEW PO ONE (01:00)
[2018-02-22] MEDS ORDERED: INDOMETHACIN 25 MG CAPSULE ONE (01:08)
[2018-02-22] MEDS ORDERED: ONDANSETRON HCL/PF 4 MG/2 ML VIAL ONE (01:08)
[2018-02-22] MEDS ORDERED: HYDROCODONE/APAP 10/325MG 1 EA TABLET ONE (01:08)
[2018-02-22] MEDS ORDERED: ASPIRIN 81 MG TAB.CHEW ONE (01:09)
[2018-02-22] MEDS ORDERED: NITROGLYCERIN PACKET 1 GM PACKET ONE (01:09)
[2018-02-22 01:19] LABS: CALCIUM, SERUM 9.5 mg/dL (8.5-10.1); CARBON DIOXIDE 25 mmol/L (21-32); CHLORIDE 101 mmol/L (98-107); CREATININE 1.4 mg/dL (0.6-1.3); GLUCOSE 140 mg/dL (74-106); POTASSIUM 3.8 mmol/L (3.5-5.1); SODIUM SERUM 139 mmol/L (136-145); UREA NITROGEN, BLOOD 29 mg/dL (7-18)
[2018-02-22 01:22] LABS: TROPONIN I < 0.017 ng/mL (0.00-0.056)
[2018-02-22 01:23] LABS: BASOPHILS # (AUTO) 0.1 /CMM (0.0-0.2); BASOPHILS % (AUTO) 0.3 % (0.0-2.0); EOSINOPHILS % (AUTO) 3.3 % (0.0-6.0); HEMATOCRIT 43 % (39-51); HEMOGLOBIN 13.8 g/dL (13.5-17.5); LYMPHOCYTES # (AUTO) 3.8 /CMM (0.8-4.8); LYMPHOCYTES % (AUTO) 23.5 % (20.0-44.0); MEAN CORPUSCULAR HGB CONC 32 g/dl (31.0-36.0); MEAN CORPUSCULAR VOLUME 97 fL (80-96); MONOCYTES # (AUTO) 0.4 /CMM (0.1-1.30); MONOCYTES % (AUTO) 2.3 % (2.0-12.0); NEUTROPHILS # (AUTO) 11.5 /CMM (1.8-8.9); NEUTROPHILS % (AUTO) 70.6 % (43.0-81.0); PLATELET COUNT (AUTO) 367 /CMM (150-450); RDW COEFFICIENT OF VARIATION 13.7 (11.5-15.0); RED BLOOD CELL COUNT(AUTO) 4.44 MIL/uL (4.5-6.0); WHITE BLOOD COUNT (AUTO) 16.3 K/uL (4.3-11.0)
[2018-02-22 01:28] LABS: ALANINE AMINOTRANSFERASE 105 U/L (12-78); ALBUMIN 3.4 g/dL (3.4-5.0); ALKALINE PHOSPHATASE 79 U/L (46-116); ASPARTATE AMINOTRANSFERASE 22 U/L (15-37); B-TYPE NATRIURETIC PEPTIDE 76 PG/ML (0-125); BILIRUBIN,DIRECT 0.1 mg/dL (0.0-0.2); BILIRUBIN,TOTAL 0.3 mg/dL (0.2-1.0); TOTAL PROTEIN, SERUM 7.9 g/dL (6.4-8.2)
[2018-02-22] MEDS ORDERED: MORPHINE SULFATE INJ 2 MG/ML DISP.SYRIN IV ONE (02:00)
[2018-02-22] MEDS ORDERED: MORPHINE SULFATE INJ 4 MG/ML DISP.SYRIN ONE (02:29)
--- NOTE | 2018-02-22 02:45 | NUR ---
O2 SAT 88 ON NC 2L. MD AWARE. PER VERBAL MD ORDER PT ON 6L NC.
[2018-02-22] MEDS ORDERED: COLCHICINE 0.6 MG TABLET PO ONE (03:00)
[2018-02-22] MEDS ORDERED: COLCHICINE 0.6 MG TABLET ONE (03:09)
--- NOTE | 2018-02-22 05:00 | NUR ---
Patient discharged to home in stable condition. Written and verbal after care instructions given. Patient verbalizes understanding of instruction. IV removed. Catheter intact and site benign. Pressure and 4x4 applied to site. No bleeding noted. Pt ambulatory with a steady gait. Instructed pt not to drive
[2018-02-22 07:04] VITALS: BP 134/99
== END 2018-02-22 07:05 | disposition home or self-care (01) ==
LOC: ER 00:40
DX: R07.89 Other chest pain (principal); M10.9 Gout, unspecified; F17.210 Nicotine dependence, cigarettes, uncomplicated; I10 Essential (primary) hypertension; Z79.899 Other long term (current) drug therapy
CPT/HCPCS: 36415; 71045; 80048; 80076; 83880; 84484 ×2; 84550; 85025; 93005; 96374; 96375; 99285; 99406; A4606; J2270; J2405; Z7610

== ENCOUNTER 2018-09-19 08:40 | Emergency (ER) | payer OTHER ==
[~2018-09-19] VITALS: Ht 188 cm; Wt 99.3 kg
[2018-09-19 08:49] VITALS: BP 147/101
[2018-09-19] MEDS ORDERED: KETOROLAC TROMETHAMINE INJ 60 MG/2 ML VIAL IM ONE ×2 (09:00→09:07)
[2018-09-19] MEDS ORDERED: HYDROCODONE/APAP 10/325MG 1 EA TABLET PO ONE (09:00)
[2018-09-19] MEDS ORDERED: HYDROCODONE/APAP 10/325MG 1 EA TABLET ONE (09:08)
[2018-09-19 09:12] LABS: BASOPHILS # (AUTO) 0.1 /CMM (0.0-0.2); EOSINOPHILS % (AUTO) 5.2 % (0.0-6.0); HEMATOCRIT 43 % (39-51); HEMOGLOBIN 14.5 g/dL (13.5-17.5); LYMPHOCYTES # (AUTO) 1.8 /CMM (0.8-4.8); LYMPHOCYTES % (AUTO) 24.8 % (20.0-44.0); MEAN CORPUSCULAR HGB CONC 34 g/dl (31.0-36.0); MEAN CORPUSCULAR VOLUME 97 fL (80-96); MONOCYTES # (AUTO) 0.4 /CMM (0.1-1.30); MONOCYTES % (AUTO) 5.4 % (2.0-12.0); NEUTROPHILS # (AUTO) 4.5 /CMM (1.8-8.9); NEUTROPHILS % (AUTO) 63.6 % (43.0-81.0); PLATELET COUNT (AUTO) 223 /CMM (150-450); RED BLOOD CELL COUNT(AUTO) 4.41 MIL/uL (4.5-6.0); WHITE BLOOD COUNT (AUTO) 7.1 K/uL (4.3-11.0)
[2018-09-19 09:20] LABS: CALCIUM, SERUM 9.2 mg/dL (8.5-10.1); CREATININE 1.3 mg/dL (0.6-1.3)
[2018-09-19 09:26] LABS: BILIRUBIN,DIRECT 0.1 mg/dL (0.0-0.2); BILIRUBIN,TOTAL 0.1 mg/dL (0.2-1.0)
[2018-09-19 09:27] LABS: ALBUMIN 3.3 g/dL (3.4-5.0); TOTAL PROTEIN, SERUM 7.8 g/dL (6.4-8.2)
[2018-09-19] MEDS ORDERED: COLCHICINE 0.6 MG TABLET ONE (09:53)
[2018-09-19] MEDS ORDERED: TRAMADOL HCL 50 MG TABLET ONE (09:57)
[2018-09-19] MEDS ORDERED: TRAMADOL HCL 50 MG TABLET PO ONE (10:00)
[2018-09-19] MEDS ORDERED: COLCHICINE 0.6 MG TABLET PO ONE (10:00)
== END 2018-09-19 10:03 | disposition home or self-care (01) ==
LOC: ER 08:48
DX: M10.061 Idiopathic gout, right knee (principal); M25.461 Effusion, right knee; I10 Essential (primary) hypertension; F10.10 Alcohol abuse, uncomplicated; F17.200 Nicotine dependence, unspecified, uncomplicated; Y90.9 Presence of alcohol in blood, level not specified
CPT/HCPCS: 36415; 73564; 80048; 80076; 84550; 85025; 96372; 99284; J1885

== ENCOUNTER 2020-03-28 01:19 | Emergency (ER) | payer MEDICARE, OTHER ==
[~2020-03-28] VITALS: Ht 188 cm; Wt 100.2 kg
[2020-03-28] MEDS ORDERED: NITROGLYCERIN PACKET 1 GM PACKET ONE (01:37)
[2020-03-28] MEDS ORDERED: NITROGLYCERIN 0.4 MG/TAB BOTTLE ONE (01:37)
[2020-03-28] MEDS ORDERED: ASPIRIN 81 MG TAB.CHEW ONE (01:37)
[2020-03-28] MEDS: NITROGLYCERIN PACKET 1 GM PACKET TD ONE ×2 (01:40→02:00)
--- NOTE | 2020-03-28 01:40 | NUR ---
SL NITRO GIVEN. UNRELIEVED CP.
--- NOTE | 2020-03-28 01:45 | NUR ---
SECOND NITRO ADMINISTERED
--- NOTE | 2020-03-28 01:46 | NUR ---
MONICAID SWABBED, SENT TO LAB.
--- NOTE | 2020-03-28 01:50 | NUR ---
THIRD NITRO ADMINISTERED
[2020-03-28 01:53] LABS: BASOPHILS # (AUTO) 0.2 /CMM (0.0-0.2); BASOPHILS % (AUTO) 1.5 % (0.0-2.0); EOSINOPHILS % (AUTO) 3.9 % (0.0-6.0); HEMATOCRIT 41 % (39-51); HEMOGLOBIN 14.3 g/dL (13.5-17.5); LYMPHOCYTES # (AUTO) 4.1 /CMM (0.8-4.8); LYMPHOCYTES % (AUTO) 36.3 % (20.0-44.0); MEAN CORPUSCULAR HGB CONC 35 g/dl (31.0-36.0); MEAN CORPUSCULAR VOLUME 99 fL (80-96); MONOCYTES # (AUTO) 0.8 /CMM (0.1-1.30); MONOCYTES % (AUTO) 7.1 % (2.0-12.0); NEUTROPHILS # (AUTO) 5.8 /CMM (1.8-8.9); NEUTROPHILS % (AUTO) 51.2 % (43.0-81.0); PLATELET COUNT (AUTO) 341 /CMM (150-450); RED BLOOD CELL COUNT(AUTO) 4.16 MIL/uL (4.5-6.0); WHITE BLOOD COUNT (AUTO) 11.4 K/uL (4.3-11.0)
[2020-03-28] MEDS ORDERED: ASPIRIN 81 MG TAB.CHEW PO ONE (02:00)
[2020-03-28] MEDS ORDERED: NITROGLYCERIN 0.4 MG/TAB BOTTLE SL ONE (02:00)
--- NOTE | 2020-03-28 02:06 | NUR ---
PT STILL C/O MD KAREN AWARE. WILL ADMINISTER PAIN MED.
[2020-03-28 02:08] LABS: CALCIUM, SERUM 8.6 mg/dL (8.5-10.1); CARBON DIOXIDE 20 mmol/L (21-32); CHLORIDE 104 mmol/L (98-107); GLUCOSE 166 mg/dL (74-106); SODIUM SERUM 137 mmol/L (136-145); UREA NITROGEN, BLOOD 34 mg/dL (7-18)
[2020-03-28] MEDS ORDERED: MORPHINE SULFATE INJ 4 MG/ML DISP.SYRIN ONE ×2 (02:10→02:33)
[2020-03-28 02:22] LABS: ALBUMIN 3.1 g/dL (3.4-5.0); B-TYPE NATRIURETIC PEPTIDE 17 PG/ML (0-125); BILIRUBIN,TOTAL 0.4 mg/dL (0.2-1.0)
[2020-03-28] MEDS ORDERED: MORPHINE SULFATE INJ 2 MG/ML DISP.SYRIN IV ONE ×2 (02:30→03:00)
--- NOTE | 2020-03-28 02:50 | NUR ---
[facility] CALLED. [facility] CALLED.
[2020-03-28] MEDS ORDERED: ENOXAPARIN SODIUM 100 MG/ML DISP.SYRIN SQ ONE ×2 (02:52→03:00)
--- NOTE | 2020-03-28 02:59 | NUR ---
CALL FROM LAB, RAPID COVID NEGATIVE.
[2020-03-28] MEDS ORDERED: IV NS 0.9% 1,000 ML BAG IV ONE (03:00)
[2020-03-28] MEDS ORDERED: METOPROLOL TARTRATE INJ 5 MG/5 ML AMPUL ONE (03:09)
--- NOTE | 2020-03-28 03:12 | NUR ---
PATIENT ACCEPTED BY DR [facility]. [facility] TRANSPORT EN ROUTE.
[2020-03-28 03:16] LABS: ALANINE AMINOTRANSFERASE 74 U/L (12-78); ALKALINE PHOSPHATASE 98 U/L (46-116); ASPARTATE AMINOTRANSFERASE 28 U/L (15-37); TOTAL PROTEIN, SERUM 7.8 g/dL (6.4-8.2)
[2020-03-28] MEDS ORDERED: METOPROLOL TARTRATE INJ 5 MG/5 ML AMPUL IV ONE (03:30)
--- NOTE | 2020-03-28 04:11 | NUR ---
[facility] TRANSPORT AT BEDSIDE REPORT GIVEN TO JOHN LACKEY.
[2020-03-28 04:12] VITALS: BP 136/92
== END 2020-03-28 04:31 | disposition short-term general hospital (02) ==
LOC: ER 01:20
DX: I21.19 ST elevation (STEMI) myocardial infarction involving other coronary artery of inferior wall (principal); F17.210 Nicotine dependence, cigarettes, uncomplicated; Z20.828 Contact with and (suspected) exposure to other viral communicable diseases; I10 Essential (primary) hypertension; E78.00 Pure hypercholesterolemia, unspecified; M10.9 Gout, unspecified; Z79.899 Other long term (current) drug therapy
CPT/HCPCS: 36415; 71045; 80048; 80076; 80320; 83880; 84484; 85025; 85378; 87426; 93005 ×3; 96361; 96372; 96374; 96375; 99291; 99406; J1650; J2270 ×2; J3490; J7030; C9803; G0480

== ENCOUNTER 2020-04-21 09:17 | Emergency (ER) | payer MEDICARE, OTHER ==
[~2020-04-21] VITALS: Ht 188 cm; Wt 99.8 kg
--- NOTE | 2020-04-21 09:25 | NUR ---
PT BIB SELF C/O L WRIST LACERATION "I ACCIDENTALLY CUT MY WRIST WHILE CUTTING MEAT. BLEEDING NOTED. APPLIED PRESSURE DRESSING. VS CHECKED. AWAITING MD WARD.
[2020-04-21] MEDS ORDERED: LIDOCAINE 1%-EPI 1:100,000 20 ML VIAL ONE (09:37)
[2020-04-21] MEDS ORDERED: TDAP [DIPH/PERTUSSIS/TET] 0.5 ML VIAL IM ONE ×2 (10:10→10:30)
--- NOTE | 2020-04-21 10:15 | NUR ---
dr. keen sutured pts laceration. no bleeding noted. applied dry dressing.
[2020-04-21 10:20] VITALS: BP 127/82
--- NOTE | 2020-04-21 10:20 | NUR ---
Patient discharged to home in stable condition. Written and verbal after care instructions given. Patient verbalizes understanding of instruction.
== END 2020-04-21 10:21 | disposition home or self-care (01) ==
LOC: ER 09:53
DX: S61.512A Laceration without foreign body of left wrist, initial encounter (principal); I10 Essential (primary) hypertension; M10.9 Gout, unspecified; F17.200 Nicotine dependence, unspecified, uncomplicated; Z79.899 Other long term (current) drug therapy; W26.0XXA Contact with knife, initial encounter; Y93.89 Activity, other specified; Y92.89 Other specified places as the place of occurrence of the external cause; Y99.8 Other external cause status
CPT/HCPCS: 12002; 90471; 90715; 99283; A6403 ×2; J3490

== ENCOUNTER 2020-09-20 16:57 | Emergency (ER) | payer MEDICARE, OTHER ==
[~2020-09-20] VITALS: Ht 188 cm; Wt 102.1 kg
[2020-09-20 17:06] VITALS: BP 125/92
--- NOTE | 2020-09-20 17:10 | NUR ---
BIBSELF for right finger laceration. A/Ox4, VSS on room air. Awaiting to be seen by MD, will continue to monitor.
[2020-09-20] MEDS ORDERED: LIDOCAINE 1% INJ 50 ML MDV IJ ONE (17:30)
[2020-09-20] MEDS ORDERED: ACETAMINOPHEN 325 MG TABLET ONE (17:30)
[2020-09-20] MEDS: ACETAMINOPHEN 325 MG TABLET PO ONE (17:33)
[2020-09-20] MEDS: LIDOCAINE HCL/PF 1% 30 ML VIAL TP ONE (17:34)
[2020-09-20] MEDS ORDERED: CEPH500C2 PO (18:33)
--- NOTE | 2020-09-20 18:57 | NUR ---
Patient discharged to home in stable condition. Written and verbal after care instructions given. Patient verbalizes understanding of instruction. Patient left ED in stable condition.
[2020-09-20] MEDS ORDERED: CEPHALEXIN MONOHYDRATE 500 MG CAPSULE PO ONE (19:00)
== END 2020-09-20 18:57 | disposition home or self-care (01) ==
LOC: ER 16:58
DX: S61.011A Laceration without foreign body of right thumb without damage to nail, initial encounter (principal); I10 Essential (primary) hypertension; F17.210 Nicotine dependence, cigarettes, uncomplicated; Z79.899 Other long term (current) drug therapy; W26.0XXA Contact with knife, initial encounter; Y93.89 Activity, other specified; Y92.89 Other specified places as the place of occurrence of the external cause; Y99.8 Other external cause status
CPT/HCPCS: 29130; 73130; 99283; 99406; A6403; J3490 ×2

== ENCOUNTER 2020-09-20 23:41 | Emergency (ER) | payer MEDICARE, OTHER ==
[~2020-09-20] VITALS: Ht 188 cm; Wt 102.1 kg
[~2020-09-20 23:41] MED LIST changes: +CEPH500C2 PO
[2020-09-20 23:43] VITALS: BP 145/92
[2020-09-21] MEDS ORDERED: GELATIN SPONGE,ABSORBABLE 1 SPONGE SPONGE TP ONE (00:12)
[2020-09-21] MEDS: GELATIN SPONGE,ABSORBABLE 1 SPONGE SPONGE TP ONE (00:30)
== END 2020-09-21 00:30 | disposition home or self-care (01) ==
LOC: ER 23:46
DX: S61.011D Laceration without foreign body of right thumb without damage to nail, subsequent encounter (principal); I10 Essential (primary) hypertension; F17.200 Nicotine dependence, unspecified, uncomplicated; F10.10 Alcohol abuse, uncomplicated; Z79.899 Other long term (current) drug therapy; Y90.9 Presence of alcohol in blood, level not specified; X58.XXXD Exposure to other specified factors, subsequent encounter
CPT/HCPCS: 99282; A6403

== ENCOUNTER 2020-09-21 09:57 | Emergency (ER) | payer MEDICARE, OTHER ==
[~2020-09-21] VITALS: Ht 188 cm; Wt 102.1 kg
[2020-09-21 10:10] VITALS: BP 134/98
== END 2020-09-21 10:57 | disposition home or self-care (01) ==
LOC: ER 09:59
DX: S61.012D Laceration without foreign body of left thumb without damage to nail, subsequent encounter (principal); I10 Essential (primary) hypertension; F10.10 Alcohol abuse, uncomplicated; F17.200 Nicotine dependence, unspecified, uncomplicated; Y90.9 Presence of alcohol in blood, level not specified; Z79.899 Other long term (current) drug therapy; W26.0XXD Contact with knife, subsequent encounter
CPT/HCPCS: 99281; A6403

== ENCOUNTER 2023-06-21 16:37 | Emergency (ER) | payer MEDICARE, OTHER ==
[~2023-06-21] VITALS: Ht 188 cm; Wt 94.8 kg
[~2023-06-21 16:37] MED LIST changes: +ATOR80TA PO; -CEPH500C2 PO; -COLC0.6C3 PO; +HYDR-4077 PO; -IBUP-1953 PO; +LOSA100T31 PO; +PANT40TA2 PO; +SUCR1TAB31 PO
[2023-06-21] MEDS ORDERED: TRANEXAMIC ACID 1,000 MG/10 ML VIAL NS ONE (18:30)
[2023-06-21] MEDS ORDERED: LET SOLN TOPICAL 8 ML UDC TP ONE (19:30)
[2023-06-21 22:00] VITALS: BP 124/82; TEMP 97.8; O2SAT 98
== END 2023-06-21 22:00 | disposition home or self-care (01) ==
LOC: ER 16:50
DX: S61.210A Laceration without foreign body of right index finger without damage to nail, initial encounter (principal); I12.9 Hypertensive chronic kidney disease with stage 1 through stage 4 chronic kidney disease, or unspecified chronic kidney disease; N18.9 Chronic kidney disease, unspecified; E78.5 Hyperlipidemia, unspecified; I25.2 Old myocardial infarction; W26.0XXA Contact with knife, initial encounter; Y93.89 Activity, other specified; Y92.89 Other specified places as the place of occurrence of the external cause; Y99.8 Other external cause status